=== PATIENT | female | born 1985 | race Caucasian/White ===

== ENCOUNTER 2016-10-19 22:19 | Inpatient (IN) | payer OTHER ==
[~2016-10-19] VITALS: Ht 170.2 cm; Wt 118.8 kg
[2016-10-19] MEDS ORDERED: ARMOUR THYROID30 MG PO (23:01)
[2016-10-19 23:11] LABS: BASOPHIL % 0.9 % (0-2); PLATELET COUNT 212 x10^3mcL (130-400); RED CELL DISTRIBUTION WIDTH 14.1 % (11.5-14.5)
[2016-10-19 23:22] LABS: CALCIUM 9.3 mg/dL (8.5-10.1); CARBON DIOXIDE 33.4 mmol/L (21-32); CREATININE SERUM 1.3 mg/dL (0.6-1.0); POTASSIUM SERUM 3.4 mmol/L (3.5-5.1)
[2016-10-19 23:26] LABS: ALBUMIN 3.9 g/dL (3.4-5.0); BILIRUBIN TOTAL 0.4 mg/dL (0.20-1.00); TOTAL PROTEIN, SERUM 8.1 g/dL (6.4-8.2)
[2016-10-20 01:01] LABS: PHOSPHOROUS 3.6 mg/dL (2.5-4.9)
[2016-10-20 01:06] LABS: T3 TOTAL 0.39 ng/mL
[2016-10-20 01:07] LABS: FREE T4 0.3 ng/dL (0.76-1.46)
[2016-10-20 01:08] LABS: CHOLESTEROL/HDL RATIO 5.7; FREE THYROXINE INDEX 0.8 ug/dL (1.4-4.5)
[2016-10-20 01:30] VITALS: BP 134/89
[2016-10-20 05:09] VITALS: BP 168/84
[2016-10-20 08:00] VITALS: BP 125/66
[2016-10-20 13:48] VITALS: BP 117/71
[2016-10-20 17:45] VITALS: BP 122/71
[2016-10-20 20:49] LABS: microscopic required? NO
[2016-10-20 20:56] LABS: UA SPECIFIC GRAVITY <=1.005 (1.005-1.035); urine erythrocyte NEGATIVE (NEGATIVE)
[2016-10-20 20:59] VITALS: BP 128/67
[2016-10-20 21:04] LABS: AMPHETAMINE QUAL UR NONE DETECTED (NEG <=1000)
[2016-10-21 05:13] VITALS: BP 131/80
[2016-10-21 06:02] LABS: BASOPHIL % 0.8 % (0-2); PLATELET COUNT 189 x10^3mcL (130-400); RED CELL DISTRIBUTION WIDTH 13.7 % (11.5-14.5)
[2016-10-21 06:38] LABS: CALCIUM 8.5 mg/dL (8.5-10.1); CARBON DIOXIDE 28.5 mmol/L (21-32); CHLORIDE SERUM 105 mmol/L (98-107); CREATININE SERUM 1.1 mg/dL (0.6-1.0); GFR1 > 60 mL/min; GLUCOSE SERUM 96 mg/dL (74-106); MAGNESIUM 2.1 mg/dL (1.8-2.4); PHOSPHOROUS 3.8 mg/dL (2.5-4.9); POTASSIUM SERUM 3.8 mmol/L (3.5-5.1); SODIUM SERUM 141 mmol/L (136-145)
[2016-10-21] MEDS ORDERED: ARMOUR THYROID30 MG PO (08:54)
[2016-10-21] MEDS ORDERED: ECO81 PO (08:57)
[2016-10-21] MEDS ORDERED: LIPI10 PO (08:57)
[2016-10-21 10:00] VITALS: BP 128/97
[2016-10-21 12:34] VITALS: BP 128/97
[2016-10-21 14:00] VITALS: BP 114/75
== END 2016-10-21 17:33 | disposition home or self-care (01) | DRG 243 ==
LOC: ED 22:19 → DU 10-20 00:09
PROVIDERS: Emergency Medicine; ADMIT Family Medicine
DX: K21.9 Gastro-esophageal reflux disease without esophagitis (principal); N17.0 Acute kidney failure with tubular necrosis; E43 Unspecified severe protein-calorie malnutrition; E06.3 Autoimmune thyroiditis; E78.5 Hyperlipidemia, unspecified; E87.6 Hypokalemia; K76.0 Fatty (change of) liver, not elsewhere classified; E66.01 Morbid (severe) obesity due to excess calories; Z68.41 Body mass index [BMI] 40.0-44.9, adult
CPT/HCPCS: 80307; 83880; 84439; J7030; Q0092

== ENCOUNTER 2018-04-29 14:43 | Inpatient (IN) | payer OTHER ==
[~2018-04-29] VITALS: Ht 160 cm; Wt 125.3 kg
[~2018-04-29 14:43] MED LIST: ARMOUR THYROID30 MG PO; ECO81 PO; LIPI10 PO
[2018-04-29 16:07] LABS: CALCIUM 9.2 mg/dL (8.5-10.1); CARBON DIOXIDE 32.3 mmol/L (21-32); CHLORIDE SERUM 104 mmol/L (98-107); CREATININE SERUM 0.9 mg/dL (0.6-1.0); GFR1 > 60 mL/min; GLUCOSE SERUM 97 mg/dL (74-106); POTASSIUM SERUM 3.6 mmol/L (3.5-5.1); SODIUM SERUM 140 mmol/L (136-145)
[2018-04-29 16:11] LABS: BASOPHIL % 0.6 % (0-2); PLATELET COUNT 199 x10^3mcL (130-400); RED CELL DISTRIBUTION WIDTH 13.9 % (11.5-14.5)
[2018-04-29 16:20] LABS: FREE T4 0.3 ng/dL (0.76-1.46)
[2018-04-29 16:24] LABS: FREE THYROXINE INDEX 0.4 ug/dL (1.4-4.5); T4(THYROXINE) 1.8 ug/dL (4.7-13.3)
[2018-04-29 16:25] LABS: T3 TOTAL 1.07 ng/mL
[2018-04-29] MEDS ORDERED: ARMOUR THYROID90 MG PO (17:14)
[2018-04-29 17:20] LABS: MAGNESIUM 2.2 mg/dL (1.8-2.4); PHOSPHOROUS 3.8 mg/dL (2.5-4.9)
[2018-04-29 17:22] LABS: CHOLESTEROL/HDL RATIO 5.8
[2018-04-29 17:59] VITALS: BP 151/85
[2018-04-29 20:30] VITALS: BP 136/81
[2018-04-29 23:27] LABS: microscopic required? NO
[2018-04-30 00:01] LABS: UA SPECIFIC GRAVITY 1.015 (1.005-1.035); urine erythrocyte NEGATIVE (NEGATIVE)
[2018-04-30 00:15] LABS: AMPHETAMINE QUAL UR NONE DETECTED (See below)
[2018-04-30 05:27] VITALS: BP 119/78
[2018-04-30 06:23] LABS: BASOPHIL % 0.8 % (0-2); PLATELET COUNT 170 x10^3mcL (130-400); RED CELL DISTRIBUTION WIDTH 13.7 % (11.5-14.5)
[2018-04-30 06:29] LABS: CARBON DIOXIDE 29.1 mmol/L (21-32); CHLORIDE SERUM 106 mmol/L (98-107); GFR1 > 60 mL/min; GLUCOSE SERUM 106 mg/dL (74-106); POTASSIUM SERUM 3.7 mmol/L (3.5-5.1); SODIUM SERUM 141 mmol/L (136-145)
[2018-04-30] MEDS ORDERED: SYNTHROID0.125 MG PO (10:00)
[2018-04-30 11:22] VITALS: BP 119/78
== END 2018-04-30 12:30 | disposition home or self-care (01) | DRG 427 ==
LOC: ED 14:43 → DU 16:40
PROVIDERS: Emergency Medicine; Internal Medicine
DX: E06.3 Autoimmune thyroiditis (principal); E78.5 Hyperlipidemia, unspecified; R73.03 Prediabetes; F12.10 Cannabis abuse, uncomplicated; E05.00 Thyrotoxicosis with diffuse goiter without thyrotoxic crisis or storm
CPT/HCPCS: 83880; 84439; J3475; J3490; J7030

== ENCOUNTER 2020-01-03 08:16 | Emergency (ER) | payer MEDICAID ==
[~2020-01-03] VITALS: Ht 170.2 cm; Wt 129.7 kg
[~2020-01-03 08:16] MED LIST changes: +ARMOUR THYROID90 MG PO; +SYNTHROID0.125 MG PO
[2020-01-03 08:44] VITALS: Ht 170.2 cm; Wt 129.7 kg
[2020-01-03 09:36] LABS: BASOPHIL % 0.6 % (0-2); PLATELET COUNT 189 x10^3mcL (130-400); RED CELL DISTRIBUTION WIDTH 14.5 % (11.5-14.5)
[2020-01-03 09:38] LABS: CALCIUM 8.6 mg/dL (8.5-10.1); CARBON DIOXIDE 29.9 mmol/L (21-32); CREATININE SERUM 1.2 mg/dL (0.6-1.0)
[2020-01-03 09:51] LABS: ALBUMIN 3.9 g/dL (3.4-5.0); BILIRUBIN TOTAL 0.4 mg/dL (0.20-1.00); PHOSPHOROUS 3.4 mg/dL (2.5-4.9); URIC ACID 6.8 mg/dL (2.6-6.0)
[2020-01-03 09:52] LABS: TOTAL PROTEIN, SERUM 8.3 g/dL (6.4-8.2)
[2020-01-03 11:44] VITALS: BP 121/82
== END 2020-01-03 11:44 | disposition home or self-care (01) ==
LOC: ED 08:16
PROVIDERS: Emergency Medicine
DX: E03.9 Hypothyroidism, unspecified (principal); R07.89 Other chest pain; Z90.711 Acquired absence of uterus with remaining cervical stump
CPT/HCPCS: 36415; Q0092